=== PATIENT | male | born 1980 | race Caucasian/White ===

== ENCOUNTER 2019-07-05 10:14 | Emergency (ER) | payer BC ==
[~2019-07-05] VITALS: Ht 177.8 cm; Wt 86.4 kg
[2019-07-05 10:48] LABS: EOS # 0.1 (0.04-0.40); EOS % 0.8 % (0.0-4.0); HEMATOCRIT 40.8 % (42.0-52.0); HEMOGLOBIN 12.6 g/dL (13.5-18.0); LYMPH# 1.3 (1.50-4.00); MEAN CELL VOLUME 88 fl (78-100); MEAN CORPUSCULAR HEMOGLOBIN 27 pg (27-31); MEAN CORPUSCULAR HGB CONC 31 g/dL (33-37); MEAN PLATELET VOLUME 11.4 fl (7.4-10.4); MONO # 0.6 (0.20-0.80); NEU # 5.4 (1.40-6.50); PLATELET COUNT 242 K/mm3 (130-400); RED BLOOD COUNT 4.64 M/mm3 (4.20-5.60); WHITE BLOOD COUNT 7.4 K/mm3 (4.8-10.8)
[2019-07-05 10:56] LABS: POTASSIUM 3.7 mmol/L (3.5-5.1)
[2019-07-05 10:57] LABS: CALCIUM 9.1 mg/dL (8.3-10.5)
[2019-07-05 10:58] LABS: TOTAL PROTEIN 7.6 g/dL (6.4-8.3)
[2019-07-05 11:00] LABS: TOTAL BILIRUBIN 0.5 mg/dL (0.2-1.2)
[2019-07-05 11:00] LABS: URINE APPEARANCE CLEAR; URINE BILIRUBIN NEGATIVE (NEGATIVE); URINE BLOOD TRACE (NEGATIVE); URINE COLOR YELLOW; URINE GLUCOSE NEGATIVE (NEGATIVE); URINE KETONE NEGATIVE (NEGATIVE); URINE LEUKOCYTE ESTERASE NEGATIVE (NEGATIVE); URINE NITRATE NEGATIVE (NEGATIVE); URINE PROTEIN(semi-quant) TRACE mg/dL (NEGATIVE); URINE UROBILINOGEN NORMAL (NORMAL); URINE WBC 0-1 /hpf (0-3)
[2019-07-05] MEDS ORDERED: NORCO 325 MG-51 TA1 PO (11:50)
[2019-07-05 12:04] VITALS: BP 107/70
== END 2019-07-05 12:03 | disposition home or self-care (01) ==
LOC: ED 10:14
PROVIDERS: Nurse Practitioner Primary Care
DX: N20.0 Calculus of kidney (principal); K50.90 Crohn's disease, unspecified, without complications

== ENCOUNTER → 2019-07-06 | Outpatient (CLI) | payer BC ==
[2019-07-05 12:04] VITALS: BP 107/70
[~2019-07-06] MED LIST: NORCO 325 MG-51 TA1 PO
[2019-07-06 08:19] LABS: EOS # 0.2 (0.04-0.40); EOS % 2.1 % (0.0-4.0); HEMATOCRIT 41.6 % (42.0-52.0); HEMOGLOBIN 12.8 g/dL (13.5-18.0); LYMPH# 1.3 (1.50-4.00); MEAN CELL VOLUME 89 fl (78-100); MEAN CORPUSCULAR HEMOGLOBIN 27 pg (27-31); MEAN CORPUSCULAR HGB CONC 31 g/dL (33-37); MEAN PLATELET VOLUME 11.2 fl (7.4-10.4); MONO # 0.8 (0.20-0.80); PLATELET COUNT 260 K/mm3 (130-400); RED BLOOD COUNT 4.69 M/mm3 (4.20-5.60); RED CELL DISTRIBUTION WIDTH 12.8 % (11.5-14.5); WHITE BLOOD COUNT 7.3 K/mm3 (4.8-10.8)
[2019-07-06 08:34] LABS: ALBUMIN 3.8 g/dL (3.5-5.0); POTASSIUM 4.1 mmol/L (3.5-5.1)
[2019-07-06 08:35] LABS: CALCIUM 8.8 mg/dL (8.3-10.5)
[2019-07-06 08:36] LABS: TOTAL PROTEIN 7.3 g/dL (6.4-8.3)
[2019-07-06 08:38] LABS: TOTAL BILIRUBIN 0.4 mg/dL (0.2-1.2)
== END ==
LOC: LAB 08:09
PROVIDERS: Nurse Practitioner Primary Care
DX: N20.0 Calculus of kidney (principal)

== ENCOUNTER 2020-12-31 06:46 | Emergency (ER) | payer BC ==
[2020-12-31] MEDS ORDERED: HUMIRA PEN40 MG/0.4 SQ (07:21)
[2020-12-31] MEDS ORDERED: PREDNISONE10 MG PO (07:21)
[2020-12-31 07:53] LABS: ALBUMIN 3.5 g/dL (3.5-5.0)
[2020-12-31 07:54] LABS: CALCIUM 8.9 mg/dL (8.3-10.5)
[2020-12-31 07:56] LABS: TOTAL PROTEIN 7.3 g/dL (6.4-8.3)
[2020-12-31 07:57] LABS: TOTAL BILIRUBIN 0.6 mg/dL (0.2-1.2)
[2020-12-31 07:58] LABS: POTASSIUM 3.3 mmol/L (3.5-5.1)
[2020-12-31 07:59] LABS: BASO # 0.02 (0.02-0.10); EOS # 0.03 (0.04-0.40); EOS % 0.3 % (0.0-4.0); HEMATOCRIT 41.5 % (42.0-52.0); HEMOGLOBIN 13.4 g/dL (13.5-18.0); LYMPH# 1.54 (1.50-4.00); MEAN CELL VOLUME 85 fl (78-100); MEAN CORPUSCULAR HEMOGLOBIN 27 pg (27-31); MEAN CORPUSCULAR HGB CONC 32 g/dL (33-37); MEAN PLATELET VOLUME 10.3 fl (7.4-10.4); MONO # 1.54 (0.20-0.80); PLATELET COUNT 316 K/mm3 (130-400); RED CELL DISTRIBUTION WIDTH 12.1 % (11.5-14.5); WHITE BLOOD COUNT 11.7 K/mm3 (4.8-10.8)
[2020-12-31 11:17] LABS: URINE APPEARANCE CLEAR; URINE BILIRUBIN NEGATIVE (NEGATIVE); URINE BLOOD 50 ery/uL (NEGATIVE); URINE COLOR YELLOW; URINE GLUCOSE NEGATIVE (NEGATIVE); URINE KETONE 2+ (NEGATIVE); URINE LEUKOCYTE ESTERASE NEGATIVE (NEGATIVE); URINE MUCUS PRESENT (NOT PRESENT); URINE NITRATE NEGATIVE (NEGATIVE); URINE PROTEIN(semi-quant) NEGATIVE (NEGATIVE); URINE UROBILINOGEN NORMAL (NORMAL)
[2020-12-31 13:54] VITALS: BP 121/77
== END 2020-12-31 13:59 | disposition home or self-care (01) ==
LOC: ED 06:46
PROVIDERS: Family Medicine
DX: K50.918 Crohn's disease, unspecified, with other complication (principal); K52.9 Noninfective gastroenteritis and colitis, unspecified; N20.2 Calculus of kidney with calculus of ureter; Z87.891 Personal history of nicotine dependence
CPT/HCPCS: J0595; J7030; Q9967

== ENCOUNTER → 2024-01-28 | Outpatient (CLI) | payer BC ==
[~2024-01-28] MED LIST changes: +HUMIRA PEN40 MG/0.4 SQ; +PREDNISONE10 MG PO
[2024-01-28 09:21] LABS: HEMATOCRIT 40.6 % (42.0-52.0); HEMOGLOBIN 12.7 g/dL (13.5-18.0); RED BLOOD COUNT 4.5 M/mm3 (4.20-5.60); RED CELL DISTRIBUTION WIDTH 14.4 % (11.5-14.5); WHITE BLOOD COUNT 6.2 K/mm3 (4.8-10.8)
[2024-01-28 09:25] LABS: ALBUMIN 4.4 g/dL (3.5-5.0)
[2024-01-28 09:26] LABS: CALCIUM 9.8 mg/dL (8.3-10.5)
[2024-01-28 09:28] LABS: TOTAL PROTEIN 7.4 g/dL (6.4-8.3)
[2024-01-28 09:29] LABS: TOTAL BILIRUBIN 0.5 mg/dL (0.2-1.2)
== END ==
LOC: LAB 08:57
PROVIDERS: Physician Assistant
DX: E78.5 Hyperlipidemia, unspecified (principal); R10.9 Unspecified abdominal pain